=== PATIENT | male | born 1995 | race Caucasian/White ===

== ENCOUNTER 2017-05-18 23:47 | Emergency (ER) | payer BC ==
[~2017-05-18] VITALS: Ht 190.5 cm; Wt 107.0 kg
[2017-05-18 23:53] VITALS: TEMP 37.3; Ht 190.5 cm; Wt 107.0 kg
--- NOTE | 2017-05-19 00:27 | EMERGENCY ROOM VISIT NOTE ---
ED Visit Note First contact with patient: 00:17 CHIEF COMPLAINT: Ankle pain HISTORY OF PRESENT ILLNESS: This 21-year-old male patient presents to the emergency department BLS approximately one and a half hours after sustaining an injury to the left ankle and foot with a twisting, inversion motion when he was walking up the driveway and his foot got caught in a divot of the ground. The patient was brought to his knees and fell due to the discomfort. The patient complains of pain along the outside of the ankle. The patient denies pain of the foot. The patient rates the pain as severe and 6/10. The patient states he is not able to bear weight on the foot, however he has not tried. Constant pain, worse with movement, weight bearing, and the dependent position. No knee pain, the patient is able to move their toes. No numbness or weakness of the foot, no laceration. The patient has not had a previous fracture to this ankle. The patient has taken nothing for the pain. The patient denies any other injury. REVIEW OF SYSTEMS: A 6 system review of systems was completed with positives and pertinent negatives listed in the HPI. ALLERGIES: None MEDICATIONS: Adderall PMH: ADHD SOCIAL HISTORY: The patient is from [place]. He denies drug, tobacco use. The patient admits to approximately 10 alcoholic beverages at a tailgate today. PHYSICAL EXAM: Vital Signs: Reviewed Nurse's notes, vital signs stable. GENERAL : This is a 21-year-old male, no acute distress, but appears in pain, well- developed, well-nourished. MENTAL STATUS: Alert, oriented to person place and time, and cooperative. MUSCULOSKELETAL: The left ankle is swollen and tender over the lateral malleolus, but the skin is intact and there is no ligamentous instability. There is no fifth metatarsal tenderness. There is no tenderness over the rest of the foot. There is no calf or tibia/fibular tenderness. There is no visual deformity. The foot and toes are warm and well-perfused. Dorsalis pedis pulse 2+. Sensation to pain and light touch is intact. Capillary refill less than 2 seconds. RADIOLOGY: Left Ankle X-Ray: L ANKLE MIN 3 VIEWS ROUTINE CLINICAL HISTORY: Left ankle pain status post trauma COMPARISON: None. DISCUSSION: There is a nondisplaced oblique fracture of the distal fibula. The ankle mortise appears intact. No tibial fractures are visualized. There is lateral soft tissue swelling area IMPRESSION: Distal fibular fracture. Electronically signed by: Abdelrahman Conley M.D. 05/19/2017 6:54 AM Dictated Date/Time: 05/19/2017 6:54 AM EMERGENCY DEPARTMENT COURSE: I examined the patient. X-rays of the left ankle were reviewed by myself and read by radiology and reveal a distal fibular fracture. A posterior leg Ortho-Glass splint was applied to the ankle under my direction and the position was satisfactory. Neurovascular status was rechecked and intact. The patient was instructed on the use of crutches. I discussed all discharged instructions including follow-up instructions with the patient and his parents at bedside. The patient was given 1 dose of OxyIR 5 mg prior to discharge. He was also given a home pack of the medication and a prescription to potato picker prior to his departure back to [place] tomorrow. The patient was discharged home in good condition. DIFFERENTIAL DIAGNOSIS: Fracture, sprain, strain, contusion, and others DIAGNOSIS: Left distal fibula fracture Current/Historical Medications Scheduled Amphetamine-Dextroamphetamine 20MG (Adderall Xr 20MG), 20 MG PO DAILY Scheduled PRN Oxycodone Ir (Roxicodone Ir), 1-2 TAB PO Q4H PRN for Pain Allergies Coded Allergies: No Known Allergies (Unverified , 05/19/17) Vital Signs Date Time Temp Pulse Resp B/P (MAP) Pulse Ox O2 Delivery O2 Flow Rate FiO2 05/19/17 02:00 97 20 144/86 96 Room Air 05/18/17 23:53 37.3 97 18 142/95 97 Room Air Medications Administered Medications (Trade) Dose Ordered Sig/Cabrera Route Start Time Stop Time Status Last Admin Dose Admin Oxycodone HCl (Roxicodone Immediate Rel Tab) 5 mg NOW STAT PO 05/19/17 01:28 05/19/17 01:30 DC 05/19/17 01:48 5 MG Oxycodone HCl (Roxicodone Immediate Rel 5MG Home Pack) 1 homepack UD ONCE PO 05/19/17 01:30 05/19/17 01:31 DC 05/19/17 01:48 1 HOMEPACK Departure Information Impression Primary Impression: Fracture of distal end of left fibula Dispostion Home / Self-Care Condition GOOD Prescriptions Oxycodone Ir (Roxicodone Ir) 5 Mg Tab 1-2 TAB PO Q4H Y for Pain, #15 TAB For Initial Treatment Prov: Rima Kohler PA-C 05/19/17 Referrals Zackary Salcedo M.D. Patient Instructions ED Fx Ankle General, My [facility] Additional Instructions You have been treated in the Emergency Department for an Ankle fracture of the fibula. You have received pain medicine in the emergency department which impairs your ability to operate a vehicle. It is illegal for you to drive after receiving these medicines. You have been prescribed OxyIR to be used for pain control. This is a narcotic medication. You cannot drive or consume alcohol while on this medicine. This medicine should only be used for pain that cannot be controlled with over-the- counter pain medicines. For pain control, you can use the following [id number] medicines (if >12 yo): Ibuprofen(Motrin, Advil) may be used for fever or pain. Use 600mg every six hours as needed. Take with food. Avoid using more than 2400mg in a 24 hour period. Do not use 2400mg per day for more than three consecutive days without physician direction. Prolonged inappropriate use can lead to stomach upset or ulcers. (AND/OR) Acetaminophen(Tylenol) may be used for fever or pain. Use 1000mg every six hours as needed. Avoid using more than 3000mg in a 24 hour period. If this is a recent injury (<24 hrs), ice can be applied to the area of pain for the first 3 days to help decrease pain and inflammation. Do not get the splint wet. If your splint feels excessively tight, you have worsening pain, develop numbness or tingling, or your digits appear blue, loosen the kevin wrap. Then reapply the kevin wrap gently without removing the splint. If your symptoms are not quickly relieved return to the ER for re- evaluation. Return to the ER immediately for any numbness, tingling, severe pain, extreme swelling in the extremity or as needed. You have been provided the number for an Orthopaedic Surgeon. You should call this number or the number of a [id number] orthopedic surgeon in [place] as soon as possible to establish a follow-up visit from today's Emergency Department visit. Keep the ankle brace/splint in place until cleared by Orthopedics. Use the crutches you have been provided to keep ALL weight off of the ankle until weight bearing is tolerable. Return to the Emergency Department if your current symptoms worsen despite treatment course outlined above, or if you develop any of the following symptoms : intractable pain despite aforementioned treatment course or new onset of numbness or tingling of the foot. Problem Qualifiers Primary Impression: Fracture of distal end of left fibula Encounter type: initial encounter Fracture type: closed Fracture morphology : unspecified fracture morphology Qualified Codes: S82.832A - Other fracture of upper and lower end of left fibula, initial encounter for closed fracture
[2017-05-19] MEDS ORDERED: AMPH20CA3 PO (00:50)
[2017-05-19] MEDS ORDERED: OXYCODONE HCL IR 5 MG TAB (IMMEDIATE RELEASE) PO STA (01:28)
[2017-05-19] MEDS ORDERED: OXYCODONE IR HOME PACK PO ONE (01:30)
[2017-05-19] MEDS ORDERED: OXYC1TAB3 PO (01:31)
[2017-05-19 02:00] VITALS: BP 144/86; PULSE 97; O2SAT 96
--- NOTE | 2017-05-19 06:55 | DIAGNOSTIC IMAGING REPORT ---
L ANKLE MIN 3 VIEWS ROUTINE CLINICAL HISTORY: Left ankle pain status post trauma COMPARISON: None. DISCUSSION: There is a nondisplaced oblique fracture of the distal fibula. The ankle mortise appears intact. No tibial fractures are visualized. There is lateral soft tissue swelling area IMPRESSION: Distal fibular fracture. Electronically signed by: Abdelrahman Conley M.D. 05/19/2017 6:54 AM Dictated Date/Time: 05/19/2017 6:54 AM
== END 2017-05-19 02:03 | disposition home or self-care (01) ==
LOC: C.EDD 23:51
DX: S82.62XA Displaced fracture of lateral malleolus of left fibula, initial encounter for closed fracture (principal); F90.9 Attention-deficit hyperactivity disorder, unspecified type; X50.1XXA Overexertion from prolonged static or awkward postures, initial encounter; Y93.01 Activity, walking, marching and hiking; Y92.093 Driveway of other non-institutional residence as the place of occurrence of the external cause